=== PATIENT | female | born 2005 | race African-American/Black ===

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

== ENCOUNTER 2023-01-16 16:39 | Outpatient (REF) | payer MEDICAID, SELFPAY ==
--- NOTE | ~2023-01-16 | XR_ITS ---
EXAMINATION: XR KNEE AP STANDING XR KNEE, RIGHT AXIAL CLINICAL INFORMATION: Pain. COMPARISON: Right knee radiographs dated 06/22/2022. TECHNIQUE: AP bilateral standing view of the knees was obtained. An axial view of the right knee was obtained. FINDINGS: Bones and soft tissues are normal. No fracture or joint effusion. Alignment is anatomic. The bilateral lateral and medial joint space compartments and the right patellofemoral compartment are well maintained. No abnormal soft tissue calcification. XR/XR knee standing BI IMPRESSION: Normal knees.
--- NOTE | ~2023-01-16 | XR_ITS ---
EXAMINATION: XR KNEE AP STANDING XR KNEE, RIGHT AXIAL CLINICAL INFORMATION: Pain. COMPARISON: Right knee radiographs dated 06/22/2022. TECHNIQUE: AP bilateral standing view of the knees was obtained. An axial view of the right knee was obtained. FINDINGS: Bones and soft tissues are normal. No fracture or joint effusion. Alignment is anatomic. The bilateral lateral and medial joint space compartments and the right patellofemoral compartment are well maintained. No abnormal soft tissue calcification. XR/XR knee RT 1V IMPRESSION: Normal knees.
== END 2023-01-16 16:40 | disposition home or self-care (01) ==
LOC: HO.HOSX 16:39
PROVIDERS: Visit Provider Physician Assistant
DX: M22.2X1 Patellofemoral disorders, right knee (principal)
CPT/HCPCS: 73560; 73565; 99202

== ENCOUNTER → 2023-03-19 13:05 | Outpatient (BNVA) | payer MEDICAID, SELFPAY | PROVIDERS: Visit Provider Physician Assistant | DX: M22.2X1 Patellofemoral disorders, right knee (principal) | CPT/HCPCS: 99212 ==

== ENCOUNTER 2023-04-29 07:12 | Outpatient (REF) | payer MEDICAID, SELFPAY | END 2023-04-29 07:13 | disposition home or self-care (01) | LOC: HO.MRI 07:12 | PROVIDERS: PCP Registered Nurse; Visit Provider Physician Assistant | DX: M22.2X1 Patellofemoral disorders, right knee (principal) | CPT/HCPCS: 73721 ==

== ENCOUNTER 2023-05-06 11:46 | Outpatient (AMB) | payer MEDICAID, SELFPAY ==
--- NOTE | 2023-05-06 11:56 | A.OFFVIS_ITS ---
Intake Intake Visit Reasons: OV MRI review of RT knee Allergies No Known Allergies Allergy (Verified 03/19/23 13:31) HPI OV MRI review of RT knee HPI Details 17-year-old female who presents in the office today for a follow up of right knee pain and review of her MRI. [facility] Social History Alcohol intake: never Patient Tobacco Use Status: Never used Tobacco Current occupational status: employed Current occupation: [employer]/ right hand dominant Review of Systems Const All systems reviewed & are unremarkable except as noted in HPI and below Physical Exam Extrem Other: Deferred due to being a telehealth visit. Assessment & Plan Assessment & Plan (1) Right patellofemoral syndrome: Code(s): M22.2X1 - Patellofemoral disorders, right knee Plan Ms. Guzman is a 17-year-old female who presents in the office today for a follow up of right knee pain and review of her MRI. The patient will continue to work with physical therapy until she has completed all of her sessions. She will continue to work on the at home exercise program. She can continue to [employer]. Follow up will be PRN, or sooner if needed. MRI of the right knee, obtained on 04/29/2023, revealed: Focal full-thickness or high-grade partial-thickness cartilage abnormality along the median ridge of the patella. The appearance is most suggestive of focal chondral injury/chondral impaction or focal arthrosis. I do not see a displaced chondral fragment. Patient Instructions: Scribed for Ladan Hunt PA-C by Charmaine Borden ophthalmic medical technologist, on 05/06/2023 at 11:48 am, EST. Your attestation Telehealth Telehealth Location of provider rendering services: practice address Location of patient: address on file Patient Identification confirmed using: Name, : Yes Telehealth method: voice only Patient verbally consented to treatment: Yes Patient verbally consented to billing insurance company: Yes Patient informed of any privacy concerns related to visit: Yes Minutes spent on Phone/Video with Pt.: 5 Coding Level of Care Code Tele Est Pt Level 3 (03265) Diagnoses Right patellofemoral syndrome M22.2X1
== END 2023-05-06 11:50 | disposition home or self-care (01) ==
LOC: HO.HOS 11:46
PROVIDERS: PCP Registered Nurse; Visit Provider Physician Assistant
DX: M22.2X1 Patellofemoral disorders, right knee (principal)
CPT/HCPCS: 99213

== ENCOUNTER 2023-07-10 10:58 | Outpatient (AMB) | payer MEDICAID, SELFPAY ==
[2023-07-10 11:00] VITALS: BMI 27.1
--- NOTE | 2023-07-10 11:00 | A.OFFVIS_ITS ---
Intake Vital Signs 07/10/23 11:00 Height 5 ft 5 in Weight 163 lb BMI 27.1 Intake Visit Reasons: OV-Right knee pain Intake Note: Gwen is a 17 year old female who presents today for a follow up of her right knee pain, DOI 04/2022. Patient reports having some discomfort depending on what she is doing. She states no pain at the moment. Allergies No Known Allergies Allergy (Verified 07/10/23 11:01) HPI OV-Right knee pain HPI Details 17-year-old female who presents in the [facility] today for a follow up of right knee pain. The patient reports no pain while in the office today. She states she has pain with certain movements. [facility] Social History Alcohol intake: never Patient Tobacco Use Status: Never used Tobacco Current occupational status: employed Current occupation: [employer]/ right hand dominant Review of Systems Const All systems reviewed & are unremarkable except as noted in HPI and below Physical Exam Vital Signs: BMI result Body Mass Index 27.1 Const General: cooperative, healthy appearing and no acute distress Resp Effort & Inspection: normal respiratory effort and able to speak in complete s entences Cardio Rate: regular rate Peripheral pulses: Peripheral pulses 2+ throughout GI Palpation (GI): Soft to palpation Skin Lesions: no lesions Rashes: no rashes Extrem Other: Right knee: Normal to inspection. No ecchymosis, erythema, or joint effusion. No tenderness to palpation to the medial or lateral joint lines. Full knee extension and flexion. Negative Ammon's. Negative anterior draw. Laxity with patella apprehension. No retropatellar tenderness. NVI. Assessment & Plan Assessment & Plan (1) Right patellofemoral syndrome: Code(s): M22.2X1 - Patellofemoral disorders, right knee Plan Ms. Guzman is a 17-year-old female who presents in the office today for a follow up of right knee pain. The patient reports no pain while in the office today. She states she has pain with certain movements. I educated the patient about her diagnoses of right patellofemoral syndrome. I discussed the role and dedication of physical therapy to work on the discomfort and inflammation. She will be placed in a genumed knee brace, off the shelf, while in the office today. She will be given a new referral to physical therapy to extend the number of sessions. Follow up will be PRN, or sooner if needed. Orders: Orders PT Evaluation and Treatment Today M22.2X1 - Patellofemoral disorders, right knee Patient Instructions: Scribed for Ladan Hunt PA-C by Charmaine Borden senior medical director, on 07/10/2023 at 11:03 am, EST. Coding Level of Care Code Est Pt Level 3 (34611) Diagnoses Right patellofemoral syndrome M22.2X1
== END 2023-07-10 11:55 | disposition home or self-care (01) ==
PROVIDERS: PCP Registered Nurse; Visit Provider Physician Assistant
DX: M22.2X1 Patellofemoral disorders, right knee (principal)
CPT/HCPCS: 99213

== ENCOUNTER → 2023-07-10 10:58 | Outpatient (BNVA) | payer MEDICAID, SELFPAY | PROVIDERS: PCP Registered Nurse; Visit Provider Physician Assistant | DX: M22.2X1 Patellofemoral disorders, right knee (principal) | CPT/HCPCS: 99212 ==

== ENCOUNTER 2023-07-10 14:00 | Outpatient (RCR) | payer MEDICAID, SELFPAY ==
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
--- NOTE | 2023-08-11 11:24 | MHC.PT.DC ---
[facility] [place] [facility] [place] [facility] [place] [facility] [address] Ceci Cook [address] [phone] F: [phone] F: [phone] F: [phone] F: [phone] Physical Therapy Discharge Report Diagnosis: Patellofemoral disorders, right knee Date of Surgery: N/A Date of Evaluation: 04/16/23 Date of Discharge: 08/11/23 Treatments to Date: 14 Cancellations to Date: No Shows to Date: 2 Discharge Status: Visit Non-compliance Discharge Summary: Pt was seen for PT from 04/16/23-07/10/23. Her last attended appointment was 07/10/23. She has had 2 no-show appointments since SOC including a no-show for her last scheduled appointment. She is being D/C from skilled PT per [facility] attendance policy and visit non compliance. Pt current level of function unknown at this time Electronically signed by: Angelica Harp, PT, DPT Please sign and return to therapist. Thank you for your referral.
== END 2023-08-11 11:24 | disposition home or self-care (01) ==
LOC: HO.PT 14:00
PROVIDERS: PCP Pediatrics; Visit Provider Physician Assistant
DX: M22.2X1 Patellofemoral disorders, right knee (principal)
CPT/HCPCS: 97033; 97110; 97112; 97161; 97530

== ENCOUNTER 2023-10-02 11:00 | Outpatient (RCR) | payer MEDICAID, SELFPAY ==
--- NOTE | 2023-09-11 10:59 | MHC.PT.EP ---
[facility] [place] [facility] [place] Office [place] Office [address] Ceci Cook [address] [phone] F: [phone] F: [phone] F: [phone] F: [phone] Physical Therapy Plan of Care Date of Evaluation: 09/11/23 Date of Surgery: NA Diagnosis: R patellofemoral disorders, R knee Assessment: Gwen is a 17 year old female who is referred to PT for R patellofemoral disorders, R knee . She reports of having injured her knee in Summer 2021 while playing Soccer. She had a blunt trauma to the anterior aspect of her knee. She was in PT for the same in Summer 2022. She completed 14 PT visits and was doing ladder drills and running at the time of d/c. She was d/c as she missed her last few scheduled appointment and was not in PT for about a month. She has returned to PT as she still has some pain and has not been doing her HEP. She would like to have any updated HEP as [place] 5 months. On PT examination she presented with no TTP, 6/10 pain in R knee with squatting, running, and stair negotiation, all hip and knee ROM WNL, and mildly decreased R hip and knee strength. She demonstrates good posture and good gait. Poor squat mechanics noted. She lives with family, is independent with all HEPs. Still has pain with playing soccer. She would benefit from skilled PT to address the aforementioned impairments so as to improve tolerance to functional activities. Frequency and Duration: The patient will be seen 1/week for 4 weeks Short Term Goals: 1. Pt will demonstrate initiation of HEP in 2 weeks. Assisted Goals: 1. Pt will report of having 50% decrease in pain with stair negotiation in 4 weeks. 2. Pt will be independent with HEP for symptom management and maintenance following d/c in 4 weeks. Treatment Plan: Modalities to reduce pain, spasms and effusion. Manual therapy to restore motion and function. Therapeutic exercise to improve strength and flexibility. Neuromuscular re-education for posture and balance. Therapeutic activities to return to functional activities of daily living. Electronically signed by: oRzina Sierra PT DPT Please sign and return to therapist. Thank you for your referral.
--- NOTE | 2023-10-13 09:28 | MHC.PT.DC ---
[facility] [place] Office [place] Office [place] Office [address] Ceci Cook [address] [phone] F: [phone] F: [phone] F: [phone] F: [phone] Physical Therapy Discharge Report Diagnosis: R patellofemoral disorders, R knee Date of Surgery: NA Date of Evaluation: 09/11/23 Date of Discharge: 10/13/23 Treatments to Date: 4 Cancellations to Date: 0 No Shows to Date: 0 Discharge Status: Achieved Goals Improved Function Independent with HEP Discharge Summary: Gwen completed 4 PT visit and is independent with all HEP. She has achieved all goals set for her. She is therefore being d/c from PT. Electronically signed by: Rozina Sierra PT DPT Please sign and return to therapist. Thank you for your referral.
== END 2023-10-13 09:28 | disposition home or self-care (01) ==
LOC: HO.PT 11:00
PROVIDERS: PCP Registered Nurse; Visit Provider Physician Assistant
DX: M22.2X1 Patellofemoral disorders, right knee (principal)
CPT/HCPCS: 97110; 97161; 97530

== ENCOUNTER 2024-04-15 15:04 | Outpatient (REF) | payer MEDICAID, SELFPAY ==
[2024-04-15 17:53] LABS: MANUAL DIFF FLAG NO
[2024-04-15 17:59] LABS: Basophils Percent Auto 0.5 % (0-2); Eosinophils Absolute Auto 0.3 X10*3/uL (0.0-0.4); Hematocrit 35.5 % (37.0-47.0); Hemoglobin 11.6 g/dl (12.0-16.0); Imm Gran Abs Auto 0.01 X10*3/uL (0.00-0.03); Imm Gran Pct Auto 0.2 % (0.0-0.4); Lymphocytes Absolute Auto 1.9 X10*3/uL (1.2-4.9); Lymphocytes Percent Auto 47.3 % (20-40); Mean Corpuscular HGB Conc 32.7 g/dl (31.0-35.0); Mean Corpuscular Hemoglobin 29.2 pg (27.0-33.0); Mean Corpuscular Volume 89.4 fL (80.0-98.0); Mean Platelet Volume 11.4 fL (9.4-12.3); Monocytes Absolute Auto 0.3 X10*3/uL (0.1-1.2); Monocytes Percent Auto 7.6 % (2-11); Neutrophils Absolute Auto 1.5 x10*3/uL (2.0-8.3); Neutrophils Percent Auto 36.4 % (45-73); Platelet Count 268 X10*3/uL (160-400); Red Blood Count 3.97 X10*6/uL (4.20-5.50); Red Cell Distribution Width 14.4 % (11.0-16.0); White Blood Count 4.1 X10*3/uL (4.8-10.8)
[2024-04-15 18:13] LABS: Estimated Average Glucose 103 mg/dL; Hemoglobin A1c % 5.2 % (<6.0)
[2024-04-15 18:14] LABS: Alanine Aminotransferase 21 U/L (0-31); Albumin Level 4.1 g/dL (3.5-5.0); Alkaline Phosphatase 54 U/L (39-117); Anion Gap 12 (12-20); Aspartate Amino Transferase 23 U/L (5-31); Bilirubin Total 0.3 mg/dL (0.0-1.0); Blood Urea Nitrogen 11 mg/dL (9-16); Calcium 9.4 mg/dL (8.4-10.2); Carbon Dioxide 24 mmol/L (22-29); Chloride 109 mmol/L (96-108); Cholesterol 175 mg/dL (<200); Estimated Glomerular Filt Rate > 60; Glucose Random 96 mg/dL (60-115); HDL Cholesterol 44 mg/dL (>40); LDL Cholesterol Calculated 117 mg/dL (<100); Potassium 3.8 mmol/L (3.3-5.1); Sodium 141 mmol/L (135-145); Total Protein 7.8 g/dL (6.5-8.0); Triglycerides 70 mg/dL (<150)
[2024-04-15 18:32] LABS: TSH reflex Free T4 0.38 uIU/mL (0.32-4.0)
[2024-04-17 22:04] LABS: RPR Rapid Plasma Reagin NON-REACTIVE (NON-REACTIVE)
[2024-04-18 08:23] LABS: HIV AB/AG Nonreactive (Nonreactive); HIV Num 1 0.07 S/CO (0.00-0.99)
[2024-04-18 15:29] LABS: HCV Log PCR <1.18 NOT DETECTED Log IU/mL (NOT DETECTED); HepC Viral Load <15 NOT DETECTED IU/mL (NOT DETECTED)
== END 2024-04-15 15:05 | disposition home or self-care (01) ==
LOC: HO.CHCLDS 15:04
PROVIDERS: Visit Provider Registered Nurse
DX: Z00.00 Encounter for general adult medical examination without abnormal findings (principal)
CPT/HCPCS: 36415; 80053; 80061; 83036; 84443; 85025; 86592; 87389; 87522

== ENCOUNTER 2024-11-07 11:52 | Outpatient (REF) | payer MEDICAID, SELFPAY ==
[2024-11-07 14:07] LABS: Eosinophils Absolute Auto 0.3 X10*3/uL (0.0-0.4); Eosinophils Percent Auto 9.9 % (0-4); Hematocrit 35.5 % (37.0-47.0); Hemoglobin 11.6 g/dl (12.0-16.0); Imm Gran Abs Auto 0.01 X10*3/uL (0.00-0.03); Imm Gran Pct Auto 0.3 % (0.0-0.4); Lymphocytes Absolute Auto 1.5 X10*3/uL (1.2-4.9); Lymphocytes Percent Auto 51.2 % (20-40); MANUAL DIFF FLAG SCAN; Mean Corpuscular HGB Conc 32.7 g/dl (31.0-35.0); Mean Corpuscular Hemoglobin 28.9 pg (27.0-33.0); Mean Corpuscular Volume 88.3 fL (80.0-98.0); Mean Platelet Volume 10.7 fL (9.4-12.3); Monocytes Absolute Auto 0.2 X10*3/uL (0.1-1.2); Monocytes Percent Auto 8.2 % (2-11); Neutrophils Absolute Auto 0.9 x10*3/uL (2.0-8.3); Neutrophils Percent Auto 29.4 % (45-73); Platelet Count 274 X10*3/uL (160-400); Red Blood Count 4.02 X10*6/uL (4.20-5.50); Red Cell Distribution Width 14.4 % (11.0-16.0); SCAN SMEAR FLAG 1; White Blood Count 2.9 X10*3/uL (4.8-10.8)
[2024-11-07 14:28] LABS: Cholesterol 153 mg/dL (<200); HDL Cholesterol 43 mg/dL (>40); Iron 35 mcg/dL (30-160); LDL Cholesterol Calculated 103 mg/dL (<100); Percent Iron Saturation 13 % (15-50); Total Iron Binding Capacity 269 mcg/dL (228-428); Triglycerides 37 mg/dL (<150); Unsaturated Iron Binding 234 ug/dL
[2024-11-07 14:45] LABS: SLIDE REVIEW VERIFIED
[2024-11-07 14:50] LABS: Ferritin 12 ng/mL (10-122)
[2024-11-08 04:50] LABS: HIV AB/AG Nonreactive (Nonreactive); HIV Num 1 0.06 S/CO (0.00-0.99)
[2024-11-08 14:17] LABS: HCV Log PCR <1.18 NOT DETECTED Log IU/mL (NOT DETECTED); HepC Viral Load <15 NOT DETECTED IU/mL (NOT DETECTED)
[2024-11-09 17:29] LABS: RPR Rapid Plasma Reagin NON-REACTIVE (NON-REACTIVE)
== END 2024-11-07 11:53 | disposition home or self-care (01) ==
LOC: HO.CHCLDS 11:52
PROVIDERS: Visit Provider Registered Nurse
DX: Z00.00 Encounter for general adult medical examination without abnormal findings (principal)
CPT/HCPCS: 36415; 80061; 82728; 83540; 85025; 86592; 87389; 87522

== ENCOUNTER 2025-03-24 12:57 | Outpatient (REF) | payer MEDICAID, SELFPAY ==
--- OUTSIDE RECORDS SUMMARY | 2025-03-24 13:09 | XMS_ITS | Clinical Summary ---
Author Organization [employer] Address [address] [place] [address] Care Team Providers Care Enthone Solder Stripper Name Role Phone Nia Thomas NURA Primary Care Provider [phone] Dalia Sullivan MD Unavailable [phone] Allergies No known active allergies Medications ibuprofen 200 MG tabletIndicatio ns:COVID-19 virus infection Take 2-3 tablets (400-600 mg) by mouth every 8 (eight) hours if needed (pain or fever). 90 tablet 1 4 07/06/20 25 Active acetaminophen (Tylenol Extra Strength) 500 MG tabletIndicatio ns:COVID-19 virus infection Take 1-2 tablets (500-1,000 mg) by mouth every 8 (eight) hours if needed (pain or fever). 90 tablet 1 4 07/06/20 25 Active ferrous gluconate (Fergon) 324 (38 Fe) MG tablet Take 1 pill every Thursday, Thursday, and Thursday. Take with a full glass of water or Vit C containing juice, and ideally 1 hour before a meal or 2 hours after a meal 36 tablet 5 Active Active Problems Problem Noted Date Diagnosed Date Healthcare maintenance 06/19/2023 Overview (11/10/2024): Last PE: 11/07/24 Titers: May 2022: Lab work confirmed immunity to Hep B, Measles, Mumps, Rubella, and Varicella Optometry: [facility], wears glases Pap: due for routine pap starting at 19 y/o Dental: referral to [facility] Dental placed 04/15/24 Assessment & Plan (06/23/2023 11:56 AM EDT): Follow up for PE on 06/19/23 Right patellofemoral syndrome 06/19/2023 Assessment & Plan (11/10/2024 10:35 AM EST): -Injury approx April 2022 -Previous tx: physical therapy and bracing -Consult with [facility] Ortho: MRI 04/29/23 with the following impression: Focal full-thickness or high-grade partial-thickness cartilage abnormality along the median ridge of the patella. The appearance is most suggestive of focal chondral injury/chondral impaction or focal arthrosis. I do not see a displaced chondral fragment. -Referral to [facility] placed on 04/17/24 -Reports cortisone injection through [facility] with limited relief -Continue following with specialist Assessment & Plan (07/31/2024 3:26 PM EDT): -Injury approx April 2022 -Previous tx: physical therapy and bracing -Consult with [facility] Ortho: MRI 04/29/23 with the following impression: Focal full-thickness or high-grade partial-thickness cartilage abnormality along the median ridge of the patella. The appearance is most suggestive of focal chondral injury/chondral impaction or focal arthrosis. I do not see a displaced chondral fragment. -Referral to [facility] placed on 04/17/24 -Reports cortisone injection through [facility] with limited relief -Continue following with specialist Assessment & Plan (04/17/2024 3:57 PM EDT): -Injury approx April 2022 -Previous tx: physical therapy and bracing -Consult with [facility] Ortho: MRI 04/29/23 with the following impression: Focal full-thickness or high-grade partial-thickness cartilage abnormality along the median ridge of the patella. The appearance is most suggestive of focal chondral injury/chondral impaction or focal arthrosis. I do not see a displaced chondral fragment. -Referral to [facility] placed on 04/17/24 Assessment & Plan (06/19/2023 2:17 PM EDT): -Injury approx April 2022 -Continues with physical therapy and bracing -Consult with [facility] Ortho: MRI 04/29/23 with the following impression: Focal full-thickness or high-grade partial-thickness cartilage abnormality along the median ridge of the patella. The appearance is most suggestive of focal chondral injury/chondral impaction or focal arthrosis. I do not see a displaced chondral fragment. -Plan to follow up with Ortho PRN Resolved Problems Problem Noted Date Diagnosed Date Resolved Date Immune to varicella 06/18/2023 06/19/20 Overview (06/18/2023): May 2022: Lab work demonstrated immunity to Hep B, Measles, Mumps, Rubella, and Varicella. Dental plaque 06/03/2023 06/19/2023 Seasonal allergic rhinitis 06/12/2022 0 06/19/2023 Encounters Date Type Department Care Team Description 02/16/2025 Telephone [facility] [address] [place] [address] Nia Thomas FNP Lab Orders 02/06/2025 Orders Only [facility] [address] [place] [address] Nia Thomas FNP Leukopenia, unspecified type (Primary Dx) 02/05/2025 Refill [facility] [address] [place] [address] Nia Thomas FNP 02/03/2025 Telephone [facility] [address] [place] [address] Abbie Eduardo 01/06/2025 Population Health Risk Score [facility] [address] [place] [address] Provider, Population Health Generic from Last 3 Months Immunizations Immunization Administration Dates Next Due Meningococcal [id number] [id number] 06/11/2022 Pfizer Covid-19 Vaccine 12+ jean-sucrose (Dyer C ap) 06/11/2022 Tdap 06/11/2022 Family History Medical History Relation Name Comments Diabetes Maternal Grandmother Clary vish Hearing loss Maternal Grandmother Clary wahl Heart disease Maternal Grandmother Clary wahl Hypertension Maternal Grandmother Clary wahl Asthma Mother Hypertension Mother Relation Name Status Comments Maternal Grandmother Clary wahl Mother Social History Tobacco Use Types Packs/Day Years Used Date Smoking Tobacco: Never Smokeless Tobacco: Never Tobacco Cessation:Counseling Given: Not Answered Alcohol Use Standard Drinks/Week Comments Never 0 (1 standard drink = 0.6 oz pur e alcohol) Depression Answer Date Recorded Patient Health Questionnaire-9 Score 2 11/07/2024 Patient Health Questionnaire-9 Score 2 11/07/2024 Last PHQ-9: Questionnaire Data Not on file 0 11/07/2024 Housing Stability Answer Date Recorded What is your housing situation today? I have venita fernández 09/08/[address] you li ve. Do you have problems with any of the following? None of the above 09/08/2024 Food Insecurity Answer Date Recorded Within the past 12 months, y ou worried that your food would run out before you got money to buy more: Never True 09/08/2024 Within the past 12 months,th e food you bought just didn't last and you didn't have enough money to get more: Never True Transportation Answer Date Recorded In the past 12 months, has l ack of transportation kept you from medical appts, meetings, work or from getting things needed for daily living? No 09/08/2024 Utilities Answer Date Recorded In the past 12 months, has t he electric, gas, oil or water company threatened to shut off services in your home? No 09/08/2024 Depression Answer Date Recorded Patient Health Questionnaire-2 Score 0 11/07/2024 Internet Access Answer Date Recorded Internet Access Q1 Yes 09/08/2024 Internet Access Q2 Not on file 09/08/2024 Comments Unknown Sex and Gender Information Value Date Recorded Sex Assigned at Female 08/25/2022 10:36 AM EDT Legal Sex Female 10:36 AM EDT Gender Identity Female 08/25/2022 10:36 AM EDT Sexual Orientation Choose not to disclose 2021 10:36 AM EDT Last Filed Vital Signs Vital Sign Reading Time Taken Comments Blood Pressure 105/63 11/07/2024 10:36 AM EST Pulse 73 11/07/2024 10:36 AM EST Temperature 36.3 ??C (97.3 ??F) 11/07/2024 10:[address] Respiratory Rate 20 11/07/2024 10:36 AM EST Oxygen Saturation 99% 11/07/2024 10:36 AM EST Inhaled Oxygen Concentration - - Weight 78.5 kg (173 lb) 11/07/2024 10:36 AM EST Height 165.1 cm (5' 5 ) 11/07/2024 10:36 AM EST Body Mass Index 28.79 11/07/2024 10:36 AM EST Plan of Treatment Upcoming Encounters Date Type Department Care Team (Late st Contact Info) Description 06/14/2025 9:30 AM EDT Office Visit [facility] [address] [place], [place] [id number] Toy, Huong, OD [address] [place] [address] Health Maintenance Due Date Last Done Comments Chlamydia and Gonorrhea Screening 2003 Disability Screening 2003 Family Planning (PISQ) 2018 HPV Vaccines (1 - 3-dose series) 2018 Meningococcal B Vaccine (1 of 2 - Standard) 2019 COVID-19 Vaccine ( season) 2024 06/11/2022, 12/05/2021, 11/14/2021 Influenza Vaccine (#1) 2024 Pap Smear 2024 Dental Oral Exam 12/12/2024 06/10/2024, 07/2023, 08/04/2018, Additional history exists Dental Prophylaxis 12/12/2024 06/10/2024, 0 06/03/2023, 03/03/2018 Dental X-Ray: Bitewings 06/11/2025 06/10/20 24, 11/04/2022, 03/03/2018 Tobacco Screening 07/29/2025 07/29/2024 Dental X-Ray: Full Mouth 11/05/2025 023, 11/04/2022, 03/03/2018 Alcohol/Substance Use Screening 11/07/2025 11/07/2024 Depression Screening 11/07/2025 11/07/2024, 11/07/19 SDOH Screening 11/07/2025 11/07/2024 DTaP/Tdap/Td Vaccines (2 - Td or Tdap) 06/11/2032 06/11/2022 Zoster Vaccines (1 of 2) 2053 RSV Patients and Patients Aged 60 years or older (1 - 1-dose 75+ series) 2078 Meningococcal Vaccine Completed 06/11/2022 HIV Screening Completed 11/07/2024, 03/27, 06/11/2022 Hepatitis C Screening Completed 11/07/2024 , 04/15/2024, 06/11/2022 HIB Vaccines Aged Out No longer eligi ble based on patient's age to complete this topic Hepatitis A Vaccines Aged Out No long er eligible based on patient's age to complete this topic Hepatitis B Vaccines Discontinued IPV Vaccines Aged Out No longer eligi ble based on patient's age to complete this topic Pneumococcal Vaccine: Pediatrics (0 to 5 Years) and At-Risk Patients (6 to 49) Years) Aged Out No longer eligible based on patient's age to complete this topic RSV under 20 months Aged Out No longe r eligible based on patient's age to complete this topic Rotavirus Vaccines Aged Out No longer eligible based on patient's age to complete this topic Procedures Procedure Name Priority Date/Time Associated Diagnosis Comments HEPATITIS C VIRAL RNA, QUANTITATIVE, REAL-TIME PCR Routine 11/07/2024 11:53 AM EST Healthcare maintenance HIV 1/2 ANTIGEN/ANTIBODY, FOURTH GENERATION W/RFL Routine 11/07/2024 11:53 AM EST Healthcare maintenance Full PROPHYLAXIS - ADULT Routine 06/10/2024 3:00 PM EDT BITEWINGS - 4 RADIOGRAPHIC IMAGES Routine 06/10/2024 3:00 PM EDT PERIODIC ORAL EVALUATION - ESTABLISHED PATIENT Routine 06/10/2024 3:00 PM EDT PANORAMIC RADIOGRAPHIC IMAGE Routine 11/04/2022 8:00 AM EST from Last 3 Months or Most Recently Relevant to Health Maintenance Results * Hepatitis C Viral RNA, Quantitative, Real-Time PCR (11/07/2024 11:53 AM EST) [facility] Hepatitis C Viral Load <15 NOT DETECTED NOT DETECTED IU/mL [facility] HCV Log PCR <1.18 NOT DETECTED NOT DETECTED Log IU/mL [facility] Comment:For additional infor harrison, please refer tohttp://education.[employer]/faq/XAN12r8(This link is being provided for informational/educational purposes only.)THIS TEST WAS PERFORMED AT:[facility] [place] [id number] LAWSON MD Blood 11/07/2024 11:5 3 AM EST 11/07/2024 1:56 PM EST Nia Thomas CATERING COORDINATOR LAB BLOOD ORDERABLES Final Res ult [facility] [address] [place] [address] [phone] * HIV-1/2 Antigen and Antibodies, Fourth Generation, with Reflexes (11/07/2024 11:53 AM EST) [facility] HIV AB/AG Nonreactive Nonreactive [facility] Comment:HIV-1 p24 Ag and/or HIV-1/HIV-2 Ab not detected.A test result that is nonreactive does not exclude thepossibility of exposure to or infection with HIV-1 and/orHIV-2. Nonreactive results in this assay for individualswith prior exposure to HIV-1 and/or HIV-2 may be due toantigen and antibody levels that are below the limit ofdetection of this assay.The [employer] HIV Ag/Ab Combo assay result andsupplemental assay results should be interpreted inconjunction with the patient's clinical presentation,history and other laboratory results. If the results areinconsistent with clinical evidence, additional testing issuggested to confirm the result. Blood Venous blood specimen / Unknown 11/07/2024 11:53 AM EST 11/07/2024 1:56 PM EST us Nia Thomas CATERING COORDINATOR LAB BLOOD ORDERABLES Final Res ult [facility] [address] [place] [address] [phone] from Last 3 Months or Most Recently Relevant to Health Maintenance Insurance [address] [address] C[facility] MEDICAID STAND ADULT Care Teams Enthone Solder Stripper Relationship Specialty Start Date End Date Nia Thomas FNP [address] [place] [address] PCP - General Family Medicine 04/04/22 Dalia Sullivan MD [address] [place] [address] 04/04/22
[2025-03-24 14:57] LABS: MANUAL DIFF FLAG NO
[2025-03-24 15:01] LABS: Basophils Percent Auto 0.8 % (0-2); Eosinophils Percent Auto 6.9 % (0-4); Hematocrit 37.1 % (37.0-47.0); Hemoglobin 12.3 g/dl (12.0-16.0); Imm Gran Pct Auto 0.3 % (0.0-0.4); Lymphocytes Percent Auto 41.6 % (20-40); Mean Corpuscular HGB Conc 33.2 g/dl (31.0-35.0); Mean Corpuscular Hemoglobin 29.5 pg (27.0-33.0); Mean Platelet Volume 12.1 fL (9.4-12.3); Monocytes Percent Auto 6.7 % (2-11); Neutrophils Percent Auto 43.7 % (45-73); Platelet Count 166 X10*3/uL (160-400); Red Blood Count 4.17 X10*6/uL (4.20-5.50); Red Cell Distribution Width 12.9 % (11.0-16.0); White Blood Count 3.8 X10*3/uL (4.8-10.8)
[2025-03-24 15:02] LABS: Eosinophils Absolute Auto 0.3 X10*3/uL (0.0-0.4); Imm Gran Abs Auto 0.01 X10*3/uL (0.00-0.03); Immature Retic Fraction 8.3 % (3.0-15.9); Lymphocytes Absolute Auto 1.6 X10*3/uL (1.2-4.9); Monocytes Absolute Auto 0.3 X10*3/uL (0.1-1.2); Neutrophils Absolute Auto 1.6 x10*3/uL (2.0-8.3); Retic HGB Equivalent 32.7 pg (30.0-35.0); Reticulocyte Percent 1.1 % (0.5-1.8); Reticulocytes Absolute 0.045 X10*6/uL (0.026-0.095)
[2025-03-24 16:05] LABS: Ferritin 17 ng/mL (10-122)
[2025-03-27 21:59] LABS: Prot Elec - Albumin 4.1 g/dL (3.8-4.8); Prot Elec - Alpha1 0.3 g/dL (0.2-0.3); Prot Elec - Alpha2 0.7 g/dL (0.5-0.9); Prot Elec - Beta 1 0.4 g/dL (0.4-0.6); Prot Elec - Beta 2 0.4 g/dL (0.2-0.5); Prot Elec - Gamma 1.5 g/dL (0.8-1.7); Prot Elec - Total Protein 7.4 g/dL (6.1-8.1)
== END 2025-03-24 12:58 | disposition home or self-care (01) ==
LOC: HO.CHCLDS 12:57
PROVIDERS: Visit Provider Registered Nurse
DX: D72.819 Decreased white blood cell count, unspecified (principal)
CPT/HCPCS: 82728; 84165; 85025; 85045